=== PATIENT | female | born 2005 | race Caucasian/White ===

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

== ENCOUNTER 2025-02-20 19:51 | Emergency (ER) | payer OTHER, SELFPAY ==
--- OUTSIDE RECORDS SUMMARY | 2025-02-20 19:54 | XMS_ITS | Encounter Summary ---
Author Organization [facility] Address [address] [place] [address] Care Team Providers Care Edger Machine Helper Name Role Phone Felipa Wesley SLITTER CREASER SLOTTER OPERATOR Unavailable [phone] Felipa Wesley APRN Primary Care Provider [phone] Encounter Details Date Type Department Care Team (Late st Contact Info) Description 10/07/2024 [employer] Message Enc [facility] Medical Group Family & Internal Medicine [facility] [address] [place] [address] Felipa Wesley APRN [address] [address] heart monitor Social History Tobacco Use Types Packs/Day Years Used Date Smoking Tobacco: Never Smokeless Tobacco: Never Alcohol Use Standard Drinks/Week Comments No 0 (1 standard drink = 0.6 oz pur e alcohol) AUDIT-C Answer Date Recorded Frequency of Alcohol Consumption Never 07/04/2018 Average Number of Drinks Not on file 019 Frequency of Binge Drinking Not on file 06/22 PHQ-2 Answer Date Recorded Patient Health Questionnaire-2 Score 0 07/29/2024 Comments No Sex and Gender Information Value Date Recorded Sex Assigned at Female 07/04/2018 2:35 PM GEODETIC SURVEYOR Legal Sex Female 7:55 PM CDT Gender Identity Female 07/04/2018 2:35 PM GEODETIC SURVEYOR Sexual Orientation Straight 07/04/2018 2: 14 PM GEODETIC SURVEYOR Occupation Industry Job Start Date Job End Date student Not on file Not on file Not on file documented as of this encounter Plan of Treatment Upcoming Encounters Date Type Department Care Team (Late st Contact Info) Description 04/04/2025 10:00 AM GEODETIC SURVEYOR Office Visit [facility] Internal [facility] - [place] [address] [place] [phone] Felipa Wesley APRN [address] [facility] [address] [place] [address] 08/11/2025 8:00 AM CDT Office Visit [facility] [place] [address] [place] [address] Misbah Larson 3 [facility] [address] [place] [address] documented as of this encounter Visit Diagnoses Not on filedocumented in this encounter Additional Health Concerns Assessment Noted Time PHQ-9 Depression Total Score: 1 07/30/19 2:44 PM CDT documented as of this encounter Care Teams Edger Machine Helper Relationship Specialty Start Date End Date Felipa Wesley APRN [address] [facility] [address] [place] [address] PCP - General NURSE PRACTITIONER 10/04/24 Felipa Wesley APRN [address] [facility] [address] [place] [address] Advanced Practice Provider NURSE PRACTITIONER 04/25/24 documented as of this encounter
--- OUTSIDE RECORDS SUMMARY | 2025-02-20 19:54 | XMS_ITS | Encounter Summary ---
Author Organization [facility] Address [address] [place] [address] Care Team Providers Care Contact Center Consultant Name Role Phone Bianca Sullivan [facility] Primary Care Provider + Rupa Orr [facility] Primary Care Provider + Felipa Wesley APRN Unavailable [phone] Felipa Wesley APRN Primary Care Provider [phone] Encounter Details Date Type Department Care Team (Late st Contact Info) Description 05/26/2022 Laser [employer]t Message Enc [facility] Medical Group Family & Internal Medicine [address] [address] Bianca Sullivan [facility] [address] [place] [address] Pediatric Endocrine referral Social History Tobacco Use Types Packs/Day Years [...] Date Recorded Patient Health Questionnaire-2 Score 0 05/05/2022 Comments No Sex and Gender Information Value Date Recorded Sex Assigned at Female 07/04/2018 2:35 PM BILINGUAL ELEMENTARY SCHOOL TEACHER Legal Sex Female 7:55 PM CDT Gender Identity Female 07/04/2018 2:35 PM BILINGUAL ELEMENTARY SCHOOL TEACHER Sexual Orientation Straight 07/04/2018 2: 14 PM BILINGUAL ELEMENTARY SCHOOL TEACHER Occupation Industry Job Start Date Job End Date student Not on file Not on file Not on file COVID-19 Exposure Response Date Recorded In the last 10 days, have yo u been in contact with someone who was confirmed or suspected to have Coronavirus/COVID-19? No / Unsure 05/05/2022 7:00 AM BILINGUAL ELEMENTARY SCHOOL TEACHER documented as of this encounter Plan of Treatment Upcoming Encounters Date Type Department Care Team (Late st Contact Info) Description 04/04/2025 10:00 AM BILINGUAL ELEMENTARY SCHOOL TEACHER Office Visit [facility] Medical [facility] Family & Internal Medicine - [place] [address] [place] [address] Felipa Wesley APRN [address] [facility] [address] [place] [address] 08/11/2025 8:00 AM CDT Office Visit [facility] [place] [address] [place] [address] Misbah Larson DO 3 [facility] [address] [place] [id number] documented as of this encounter Visit Diagnoses Not on filedocumented in this encounter Additional Health Concerns Infection Onset Date Last Indicated Resolved Time COVID-19 Rule Out 10/05/2022 10/05/2022 10/05/2022 11:38 AM CDT COVID-19 Rule Out 04/10/2024 04/10/2024 04/10/2024 4:06 PM BILINGUAL ELEMENTARY SCHOOL TEACHER Assessment Noted Time PHQ-9 Depression Total Score: 0 03/08/20 4:36 PM CDT documented as of this encounter Care Teams Contact Center Consultant Relationship Specialty Start Date End Date Bianca Sullivan FNP- PCP - General Nurse Practitioner Family 03/08/21 03/12/23 Rupa Orr, [facility]- PCP - General Nurse Practitioner Family 03/13/23 10/03/24 Felipa Wesley APRN [address] [facility] [address] [place] [address] PCP - General NURSE PRACTITIONER 10/04/24 Felipa Wesley APRN [address] [facility] [address] [place] [address] Advanced Practice Provider NURSE PRACTITIONER 04/25/24 documented as of this encounter
--- OUTSIDE RECORDS SUMMARY | 2025-02-20 19:54 | XMS_ITS | Encounter Summary ---
Author Organization [facility] Address [address] [place] [address] Care Team Providers Care Maple Syrup Maker Name Role Phone Bianca Sullivan [facility] Primary Care Provider + Rupa Orr [facility] Primary Care Provider + Felipa Wesley APRN Unavailable Felipa Wesley APRN Primary Care Provider [phone] Encounter Details Date Type Department Care Team (Late st Contact Info) Description 01/02/2023 [employer] Message Enc [facility] Medical Group Family & Internal Medicine [address] [address] Bianca Sullivan [facility] [address] [place] [id number] Xray results Social History Tobacco Use Types Packs/Day Years [...] Date Recorded Patient Health Questionnaire-2 Score 0 11/21/2022 Comments No Sex and Gender Information Value Date Recorded Sex Assigned at Female 07/04/2018 2:35 PM TRAVEL ADMINISTRATOR Legal Sex Female 7:55 PM CDT Gender Identity Female 07/04/2018 2:35 PM TRAVEL ADMINISTRATOR Sexual Orientation Straight 07/04/2018 2: 14 PM TRAVEL ADMINISTRATOR Occupation Industry Job Start Date Job End Date student Not on file Not on file Not on file documented as of this encounter Progress Notes * Jaleesa Solo MA - 01/02/2023 11:14 AM CDT See result note. documented in this encounter Plan of Treatment Upcoming Encounters Date Type Department Care Team (Late st Contact Info) Description 04/04/2025 10:00 AM TRAVEL ADMINISTRATOR Office Visit [facility] Medical [facility] Family & Internal Medicine - [place] [address] [place] [address] Felipa Wesley APRN [address] [facility] [address] [place] [id number] 08/11/2025 8:00 AM CDT Office Visit [facility]ty [facility] - [place] [address] [place] [address] Misbah Larson DO 3 [facility] [address] [place] [address] documented as of this encounter Visit Diagnoses Not on filedocumented in this encounter Additional Health Concerns Infection Onset Date Last Indicated Resolved Time COVID-19 Rule Out 04/10/2024 04/10/2024 04/10/2024 4:06 PM TRAVEL ADMINISTRATOR Assessment Noted Time PHQ-9 Depression Total Score: 0 03/08/20 4:36 PM CDT documented as of this encounter Care Teams Maple Syrup Maker Relationship Specialty Start Date End Date Bianca Sullivan FNP-LARISSA PCP - General Nurse Practitioner Family 03/08/21 03/12/23 Rupa Orr, [facility]- PCP - General Nurse Practitioner Family 03/13/23 10/03/24 Felipa Wesley APRN [address] [facility] [address] [place] [address] PCP - General NURSE PRACTITIONER 10/04/24 Felipa Wesley APRN [address] [facility] [place] [address] Advanced Practice Provider NURSE PRACTITIONER 04/25/24 documented as of this encounter
--- OUTSIDE RECORDS SUMMARY | 2025-02-20 19:54 | XMS_ITS | Encounter Summary ---
Author Organization [facility] Address [address] [place] [address] Care Team Providers Care Operator Cavity Pump Name Role Phone ReedersAdalgisa FLATBED TRUCK DRIVER Primary Care Provider Unav ailable Bianca Sullivan [facility] Primary Care Provider + Rupa Orr [facility] Primary Care Provider + Felipa Wesley SLICE PLUG CUTTER OPERATOR Unavailable [phone] Felipa Wesley SLICE PLUG CUTTER OPERATOR Primary Care Provider [phone] Encounter Details Date Type Department Care Team (Late st Contact Info) Description 12/21/2017 Abstract [facility] CONVERSION [address] [place] [address] , Generic ConversionMD Social History Tobacco Use Types Packs/Day Years Used Date Smoking Tobacco: Never Assessed Comments Unknown Sex and Gender Information Value Date Recorded Sex Assigned at Female 07/04/2018 2:35 PM JUNIOR ACCOUNTANT Legal Sex Female 7:55 PM CDT Gender Identity Female 07/04/2018 2:35 PM JUNIOR ACCOUNTANT Sexual Orientation Straight 07/04/2018 2: 14 PM JUNIOR ACCOUNTANT documented as of this encounter Plan of Treatment Upcoming Encounters Date Type Department Care Team (Late Contact Info) Description 04/04/2025 10:00 AM JUNIOR ACCOUNTANT Office Visit [facility] Medical Group Family & Internal Medicine [facility] [address] [place] [address] Felipa Wesley, SLICE PLUG CUTTER OPERATOR [address] [facility] [address] [place] [address] 08/11/2025 8:00 AM CDT Office Visit [facility] Medical Group Pul[facility]ology Specialty [facility] - [place] [address] [place] [address] Misbah Larson DO 3 [facility] [address] [place] [address] documented as of this encounter Visit Diagnoses Not on filedocumented in this encounter Additional Health Concerns Infection Onset Date Last Indicated Resolved Time COVID-19 Rule Out 10/05/2022 10/05/2022 10/05/2022 11:38 AM CDT COVID-19 Rule Out 04/10/2024 04/10/2024 04/10/2024 4:06 PM JUNIOR ACCOUNTANT documented as of this encounter Care Teams Operator Cavity Pump Relationship Specialty Start Date End Date Adalgisa Lopez, FLATBED TRUCK DRIVER PCP - General NURSE PRACTITIONER 07/04/18 03/07/21 Bianca Sullivan, [facility] PCP - General Nurse Practitioner Family 03/08/21 03/12/23 Rupa Orr, [facility] PCP - General Nurse Practitioner Family 03/13/23 10/03/24 Felipa Wesley APRN [address] [facility] [address] [place] [address] PCP - General NURSE PRACTITIONER 10/04/24 Felipa Wesley APRN [address] [facility] [address] [place] [address] Advanced Practice Provider NURSE PRACTITIONER 04/25/24 documented as of this encounter
--- OUTSIDE RECORDS SUMMARY | 2025-02-20 19:54 | XMS_ITS | Encounter Summary ---
Author Organization [facility] Address [address] [place] [address] Care Team Providers Care Machine Assembler For Puller Over Name Role Phone Rupa Orr [facility] Primary Care Provider + Felipa Wesley APRN Unavailable [phone] Felipa Wesley APRN Primary Care Provider [phone] Encounter Details Date Type Department Care Team (Late st Contact Info) Description 04/12/2024 [employer] 263t Message Enc [facility] Medical Group Family & Internal Medicine [address] [address] Rupa Orr, [place] [address] Social History Tobacco Use Types Packs/Day Years [...] Date Recorded Patient Health Questionnaire-2 Score 0 04/09/2024 Comments No Sex and Gender Information Value Date Recorded Sex Assigned at Female 07/04/2018 2:35 PM STUDENT Legal Sex Female 7:55 PM CDT Gender Identity Female 07/04/2018 2:35 PM STUDENT Sexual Orientation Straight 07/04/2018 2: 14 PM STUDENT Occupation Industry Job Start Date Job End Date student Not on file Not on file Not on file documented as of this encounter Plan of Treatment Upcoming Encounters Date Type Department Care Team (Late st Contact Info) Description 04/04/2025 10:00 AM STUDENT Office Visit [facility] Family & Internal Medicine - [place] [address] [place] [address] Felipa Wesley APRN [address] [facility] [address] [place] [address] 08/11/2025 8:00 AM CDT Office Visit [facility] - [place] [address] [place] [address] Misbah Larson 3 [facility] [address] [place] [address] documented as of this encounter Visit Diagnoses Not on filedocumented in this encounter Additional Health Concerns Assessment Noted Time PHQ-9 Depression Total Score: 0 03/08/20 21 4:36 PM CDT documented as of this encounter Care Teams Machine Assembler For Puller Over Relationship Specialty Start Date End Date Rupa Orr, [employer]- PCP - General Nurse Practitioner Family 03/13/23 10/03/24 Felipa Wesley APRN [address] [facility] [address] [place] [address] PCP - General NURSE PRACTITIONER 10/04/24 Felipa Wesley [facility]N [address] [facility] [address] [address] [place] [id number] Advanced Practice Provider NURSE PRACTITIONER 04/25/24 documented as of this encounter
--- OUTSIDE RECORDS SUMMARY | 2025-02-20 19:54 | XMS_ITS | Clinical Summary ---
Author Organization [address] Address [facility] [place] [address] Care Team Providers Care Linux Network Administrator Name Role Phone No, Physician Primary Care Provider [phone] Allergies Active Allergy Reactions Criticality Noted Date Comments Amoxicillin-Pot Clavulanate Hives,Rash Medium 07/04/19 19 Medications tretinoin (RETIN-A) 0.025 % creamIndications:A cne vulgaris Apply a peasize to face nightly. Has used BP 45 g 2 06/28/19 22 Active clindamycin (CLEOCIN T) 1 % lotionIndications: Acne vulgaris Apply to affected areas on face, chest and back every morning 60 mL 2 09/21/19 22 Active mometasone (ELOCON) 0.1 % ointmentIndication s:Keloid Apply to affected areas on back up to once a day 45 g 1 10/19/19 23 Active Additional Information Patient not taking.Reported on 07/26/2024 medroxyPROGESTERon e (PROVERA) 10 mg tabletIndications: Amenorrhea, primary Take 1 tablet (10 mg total) by mouth daily 30 tablet 3 11/16/19 23 Active Additional Information Patient not taking.Reported on 07/26/2024 meloxicam (MOBIC) 15 mg tablet TAKE 1 TABLET BY MOUTH EVERY DAY WITH FOOD 30 tablet 04/16/20 24 Active Additional Information Patient not taking.Reported on 07/26/2024 Airsupra 90-80 mcg/actuation HFA aerosol inhaler Inhale 2 Inhalations every 4 (four) hours as needed 04/10/20 Active ondansetron ODT (ZOFRAN-ODT) 4 mg disintegrating tablet Take by mouth every 8 (eight) hours as needed Active Zepbound 7.5 mg/0.5 mL pen injector INJECT 7.5 MG INTO THE SKIN ONCE A WEEK. 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 07/11/2023 Amenorrhea, primary 06/21/2022 Acne vulgaris 04/12/2021 Keloid 04/12/2021 Overweight child 03/17/2020 Dysfunction of both eustachian tubes 03/17/2020 Encounters Date Type Department Care Team Description 02/14/2025 Results Follow-Up [facility] Medicine and [facility] Orthopedic [place] ([facility]) - [facility] [address] [place] [address] Andrea Ruvalcaba MD XR Pelvis 1 or 2 Views 02/13/2025 12:55 PM CDT - 02/13/2025 11:59 PM CDT Hospital Encounter [facility] Diagnostic Imaging [address] [place] [id number] Chronic right SI joint pain; Right hip pain Discharge Disposition: Discharge to home or self care 02/05/2025 Orders Only [facility] Medicine Orthopaedic Surgery [address] [facility] [address] [place] [address] Andrea Ruvalcaba MD Chronic right SI joint pain (Primary Dx); Right hip pain from Last 3 Months Surgical History Surgery Date Site/Laterality Comments TONSILLECTOMY MYRINGOTOMY W/ TUBES FLUORO GUIDED INJECTION HIP RIGHT 04/02/2024 Right Medical History Medical History Date Comments Low back pain Overweight child 03/17/2020 Keloid 04/12/2021 Dysfunction of both eustachian tubes 03/17/2020 Amenorrhea, primary 06/21/2022 Acne vulgaris 04/12/2021 Family History Medical History Relation Name Comments Late Puberty Brother puberty at 15 No Known Problems Father Arthritis Maternal Grandfather Dementia Maternal Grandfather Diabetes Maternal Grandfather Hypertension Maternal Grandfather Arthritis Maternal Grandmother Diabetes Maternal Grandmother Hypertension Maternal Grandmother Diabetes Mother Late Puberty Mother menarche at age 16 Diabetes Paternal Grandfather Breast cancer Paternal Grandmother Diabetes Paternal Grandmother Late Puberty Sister 1 menarche at 15, has a baby now Late Puberty Sister 2 menarche at 14 Relation Name Status Comments Brother Alive Father Alive Maternal Grandfather Alive Maternal Grandmother Alive Mother Alive Paternal Grandfather Alive Paternal Grandmother Alive Sister 1 Alive Sister 2 Alive Social History Tobacco Use Types Packs/Day Years Used Date Smoking Tobacco: Never Passive Smoke Exposure: Current Smokeless Tobacco: Never Tobacco Cessation:Counseling Given: Not Answered AUDIT-C Answer Date Recorded Frequency of Alcohol Consumption Not on file 04/19/2023 Q2: How many drinks containi ng alcohol do you have on a typical day when you are drinking? Patient does not drink Frequency of Binge Drinking Not on file 03/23 PHQ-2 Answer Date Recorded PHQ-2 Total Score (If total score is 3 or more points, staff should administer the PHQ-9) 0 06/21/2022 Comments No Sex and Gender Information Value Date Recorded Sex Assigned at Not on file Legal Sex Female 10:54 AM HOROLOGIST Gender Identity Not on file Sexual Orientation Not on file History Length Weight Head Circum Date/Time Gestation Age D/C Weight APGARs Delivery Method Feeding 2005 39 wks C-Sectio n They don't recall the weight, but the , delivery, and course was uncomplicated. Born at [place], [place]. Obstetrics History Para Term AB IAB SAB Ectopic Multiple Livin g Live Births 0 0 0 0 0 0 0 0 0 0 0 Growth Chart Information Age Height Weight Peadsk-ued-hkat th Percentile BMI Percentile Head Circum Head Circum Percentile Date 19 years 174.7 cm (5' 8.78) 151.9 kg (334 lb 14.1 oz) 99.93%* 2024 18 years 171 cm (5' 7.32) 156 kg (344 lb) 99.99%* 2023 18 years 173.8 cm (5' 8.43) 154.5 kg (340 lb 9.8 oz) 99.98%* 2023 18 years 175.5 cm (5' 9.09) 155.8 kg (343 lb 7.6 oz) 99.97%* 2023 17 years 174 cm (5' 8.5) 145.2 kg (320 lb) 99.93%* 2022 17 years 173.5 cm (5' 8.31) 149.7 kg (330 lb 0.5 oz) 99.97%* 2022 17 years 148.3 kg (327 lb) 2022 17 years 169.5 cm (5' 6.73) 150.2 kg (331 lb 3.2 oz) 99.99%* 2022 17 years 173.5 cm (5' 8.3) 150.6 kg (332 lb) 99.98%* 2022 17 years 172.8 cm (5' 8.03) 149.7 kg (330 lb 0.5 oz) 99.99%* 2022 16 years 172.7 cm (5' 8) 139.5 kg (307 lb 8.7 oz) 99.95%* 2021 16 years 172.1 cm (5' 7.76) 144.1 kg (317 lb 10.9 oz) 99.98%* 2021 16 years 173.5 cm (5' 8.31) 142.7 kg (314 lb 9.5 oz) 99.98%* 2021 15 years 139.7 kg (308 lb) 2020 14 years 170.2 cm (5' 7) 123.8 kg (273 lb) 99.96%* 2019 13 years 170.2 cm (5' 7) 123.8 kg (273 lb) 99.97%* 2018 * CDC (Girls, 2-20 Years) Last Filed Vital Signs Vital Sign Reading Time Taken Comments Blood Pressure 125/72 04/19/2023 3:17 PM HOROLOGIST Pulse 75 04/19/2023 3:17 PM HOROLOGIST Temperature 36.4 C (97.5 F) 04/19/2023 2:21 PM HOROLOGIST Respiratory Rate 20 04/19/2023 3:17 PM HOROLOGIST Oxygen Saturation 100% 04/19/2023 3:17 PM HOROLOGIST Inhaled Oxygen Concentration - - Weight 151.9 kg (334 lb 14.1 oz) 07/26/2024 2:58 PM HOROLOGIST Height 174.7 cm (5' 8.78) 07/26/2024 2:58 PM CS T Body Mass Index 49.77 07/26/2024 2:58 PM HOROLOGIST Plan of Treatment Health Maintenance Due Date Last Done Comments Hepatitis C Screening 2005 Meningococcal B Vaccine (1 o f 2 - Standard) 2021 Regular Well Visit/Exam 18-64 2023 Depression Screening 06/20/2023 06/20/2022 Influenza Vaccine (#1) 2025 , 03/08/2021, 03/12/2020, Additional history exists DTaP/Tdap/Td Vaccine (7 - Td or Tdap) 11/14/2026 11/14/2016, 02/27/2010, 02/27/2010, Additional history exists Pneumococcal vaccine <65 (2 of 2 - PCV20 or PCV21) 2055 02/27/2010, 05/06/2006, 02/14/2006, Additional history exists Hepatitis B Screening Completed 02/14/2006 , 2005, 2005, Additional history exists Varicella Vaccines Completed 02/27/2010, 1 , 05/06/2006, Additional history exists HPV Vaccines Completed 01/15/2020, 01/04/2019 Meningococcal Vaccine Completed 01/27/2023, 017 Goals Goal Patient Goal Type Associated Problems Recent Progress Patient-Stated? Author CCM Chronic Pain Care Plan Chronic Care Management No change(04/19 2:23 PM HOROLOGIST) No Harper Link, RN Note: Problem: Chronic Pain Goals: 1. Minimize further functional decline 2. Maximize quality of life 3. Control pain Strategies: - Activity/exercise program recommendation - Conservative stepwise pain medicine strategy with multi-disciplinary approach - Recommend healthy lifestyle strategies and compensatory methods as needed Procedures Procedure Name Priority Date/Time Associated Diagnosis Comments XR PELVIS 1 OR 2 VIEWS Schedule Routine, Read Routine (OP Routine) 02/13/2025 1:10 PM CDT Chronic right SI joint pain Right hip pain XR SPINE LUMBAR COMPLETE 4 OR MORE VIEWS Schedule Routine, Read Routine (OP Routine) 02/13/2025 1:10 PM CDT Chronic right SI joint pain Right hip pain from Last 3 Months Results * XR Pelvis 1 or 2 Views (02/13/2025 1:10 PM CDT) Anatomical Region Laterality Modality Body, Pelvis N/A Computed Radiogr aphy 02/14/2025 8:21 AM CDT Narrative 02/14/2025 8:33 AM CDT EXAM DESCRIPTION: 1. XR SPINE LUMBAR 4 OR MORE VIEWS 2. XR PELVIS 1 OR 2 VIEWS REASON FOR STUDY: low back pain right hip pain Lower back radiating into right SI joints and right hip for over 2 years; hx lumbar/right hip pain injections; no injury reported; FINDINGS: Four views lumbar spine and single-view pelvis submitted with comparison 02/16/2024. Lumbar spine: No acute fracture. Alignment is normal. The intervertebral disc space heights are normal. Flexion-extension views demonstrate no abnormal translation. Pelvis: No acute fracture. Mild left inferior pelvic tilt. The femoral heads are well seated. The hip joint space heights are normal. IMPRESSION: 1. Normal lumbar spine evaluation. 2. Mild left inferior pelvic tilt. May consider further evaluation with leg length discrepancy imaging. THIS IS AN ELECTRONICALLY VERIFIED FINAL REPORT 02/14/2025 8:33 AM - Electronically signed by Danny Garcia M.D. MF: NEDA Report ID: [id number] Reading Location: [id number] Procedure Note Danny Garcia MD - 02/14/2025 EXAM DESCRIPTION: 1. XR SPINE LUMBAR 4 OR MORE VIEWS 2. XR PELVIS 1 OR 2 VIEWS REASON FOR STUDY: low back pain right hip pain Lower back radiating into right SI joints and right hip for over 2 years;hx lumbar/right hip pain injections; no injury reported; FINDINGS: Four views lumbar spine and single-view pelvis submitted with comparison 02/16/2024. Lumbar spine: No acute fracture. Alignment is normal. The intervertebral disc space heights are normal. Flexion-extension views demonstrate no abnormal translation. Pelvis: No acute fracture. Mild left inferior pelvic tilt. The femoral heads are well seated. The hip joint space heights are normal. IMPRESSION: 1. Normal lumbar spine evaluation. 2. Mild left inferior pelvic tilt. May consider further evaluation withleg length discrepancy imaging. THIS IS AN ELECTRONICALLY VERIFIED FINAL REPORT 02/14/2025 8:33 AM - Electronically signed by Danny Garcia M.D. MF: NEDA Report ID: [id number] Reading Location: [place] [id number] [place] Andrea Ruvalcaba MD IMG XR PROCEDURES Final Res ult * X-ray lumbar spine complete 4+ views (02/13/2025 1:10 PM CDT) Anatomical Region Laterality Modality Spine N/A Computed Radiogr aphy 02/14/2025 8:21 AM CDT Narrative 02/14/2025 8:33 AM CDT EXAM DESCRIPTION: 1. XR SPINE LUMBAR 4 OR MORE VIEWS 2. XR PELVIS 1 OR 2 VIEWS REASON FOR STUDY: low back pain right hip pain Lower back radiating into right SI joints and right hip for over 2 years; hx lumbar/right hip pain injections; no injury reported; FINDINGS: Four views lumbar spine and single-view pelvis submitted with comparison 02/16/2024. Lumbar spine: No acute fracture. Alignment is normal. The intervertebral disc space heights are normal. Flexion-extension views demonstrate no abnormal translation. Pelvis: No acute fracture. Mild left inferior pelvic tilt. The femoral heads are well seated. The hip joint space heights are normal. IMPRESSION: 1. Normal lumbar spine evaluation. 2. Mild left inferior pelvic tilt. May consider further evaluation with leg length discrepancy imaging. THIS IS AN ELECTRONICALLY VERIFIED FINAL REPORT 02/14/2025 8:33 AM - Electronically signed by Danny Garcia M.D. MF: NEDA Report ID: [id number] Reading Location: [id number] Procedure Note Danny Garcia MD - 02/14/2025 EXAM DESCRIPTION: 1. XR SPINE LUMBAR 4 OR MORE VIEWS 2. XR PELVIS 1 OR 2 VIEWS REASON FOR STUDY: low back pain right hip pain Lower back radiating into right SI joints and right hip for over 2 years;hx lumbar/right hip pain injections; no injury reported; FINDINGS: Four views lumbar spine and single-view pelvis submitted with comparison 02/16/2024. Lumbar spine: No acute fracture. Alignment is normal. The intervertebral disc space heights are normal. Flexion-extension views demonstrate no abnormal translation. Pelvis: No acute fracture. Mild left inferior pelvic tilt. The femoral heads are well seated. The hip joint space heights are normal. IMPRESSION: 1. Normal lumbar spine evaluation. 2. Mild left inferior pelvic tilt. May consider further evaluation withleg length discrepancy imaging. THIS IS AN ELECTRONICALLY VERIFIED FINAL REPORT 02/14/2025 8:33 AM - Electronically signed by Danny Garcia M.D. MF: NEDA Report ID: [id number] Reading Location: [id number] us Andrea Ruvalcaba MD IMG XR PROCEDURES Final Res ult from Last 3 Months Insurance [facility] [employer] [facility] [employer] [facility] H[employer]PPO Address: [facility] [address] [place] [id number] [facility] [employer] H[employer]/PPO Address: [address] [phone] [facility] [employer] H[employer]/PPO Address: [id number] [employer] [facility] H[employer]/PPO Address: [address] [address] [place] [address] [employer] [facility] [employer] H[employer]/PPO Address: [address] [address] [place] [address] Care Teams Linux Network Administrator Relationship Specialty Start Date End Date No, Physician PCP - General 07/26/24
--- OUTSIDE RECORDS SUMMARY | 2025-02-20 19:54 | XMS_ITS | Clinical Summary ---
Author Organization [facility] Address [address] [place] [address] Care Team Providers Care Transportation Inspector Name Role Phone Maryjane Felipa Kelsey APRN Unavailable [phone] Felipa Wesley APRN Primary Care Provider [phone] Allergies Active Allergy Reactions Criticality Noted Date Comments Amoxicillin-Pot Clavulanate Hives,Rash Low 07/04/19 19 Medications clindamycin 1 % lotion Apply to affected areas on face, chest and back every morning 2 Active tretinoin 0.025 % cream Apply a peasize to face nightly. Has used BP 2 Active meloxicam (MOBIC) 15 MG tablet Take 1 tablet (15 mg total) by mouth daily. 4 Active ondansetron (ZOFRAN-ODT) 4 MG disintegrating tablet Take 1 tablet (4 mg total) by mouth every 8 (eight) hours as needed for Nausea. 20 tablet 4 Active tirzepatide (ZEPBOUND) 15 MG/0.5ML injectionIndication s:Weight Loss Inject 15 mg into the skin once a week. Indications: Weight Loss 6 mL 3 5 Active metoprolol succinate ER (TOPROL-XL) 50 MG 24 hr tabletIndications:P alpitations,Primary hypertension,Tachyc ardia Take 1 tablet (50 mg total) by mouth daily. 90 tablet 1 5 Active montelukast (SINGULAIR) 10 MG tabletIndications:M oderate persistent asthma without complication (HHS/HCC) Take 1 tablet (10 mg total) by mouth nightly at bedtime. 90 tablet 1 5 Active Fluticasone-Umeclid in-Vilant (TRELEGY ELLIPTA) 200-62.5-25 MCG/ACT AEROSOL POWDER, BREATH ACTIVATEDIndication s:Moderate persistent asthma without complication (HHS/HCC) Inhale 1 puff into the lungs daily. 60 each 6 5 Active Albuterol-Budesonid e (AIRSUPRA) 90-80 MCG/ACT AerosolIndications: Moderate persistent asthma without complication (HHS/HCC) Inhale 2 puffs into the lungs every 4 (four) hours as needed. 10.7 g 6 5 Active Active Problems Problem Noted Date Diagnosed Date Shortness of breath 12/20/2024 Assessment & Plan (12/20/2024 10:11 AM CDT): I reassured her that her cardiac testing is within normal limits. She also had pulmonary function testing that was within normal limits. I am not sure on the etiology of her shortness of breath, but would not pursue any other cardiac etiologies. Palpitations 12/20/2024 Assessment & Plan (12/20/2024 10:12 AM CDT): Her monitor does not show any significant arrhythmias. Can continue metoprolol for symptom control. Tendinopathy of right gluteus medius 02/16/2024 Chronic right SI joint pain 07/11/2023 Amenorrhea, primary 06/21/2022 Morbid obesity with BMI of 45.0-49.9, adult 05/0 10/2021 Assessment & Plan (12/20/2024 10:11 AM CDT): Continue Zepbound. Encourage lifestyle modifications. She is morbidly obese with a Body mass index is 48.66 kg/m . She was educated on lifestyle modifications including diet and exercise. Acne vulgaris 04/12/2021 Keloid 04/12/2021 Overweight child 03/17/2020 Dysfunction of both eustachian tubes 03/17/2020 Encounters Date Type Department Care Team Description 02/03/2025 2:40 PM CDT Office Visit [facility] Pulmonology [facility] [address] [place] [address] Misbah Larson DO Shortness Of Breath (On exertion; ) 02/03/2025 Travel 12/29/2024 Results Follow-Up [facility] Family & Internal [address] [address] Felipa Wesley APRN Home Sleep Study - WatchPat ([id number]/G0400) 12/20/2024 9:30 AM CDT Office Visit [facility] [address] [address] Cody Kwan MD Consult; Shortness Of Breath ; Palpitations 12/20/2024 MyChart Message Enc [facility] Internal [address] [address] Felipa Wesley APRN Cardio Appt 12/20/2024 Travel 12/16/2024 6:30 PM CDT - 12/16/2024 11:59 PM CDT Hospital Encounter [facility] [address] [place] [phone] Felipa Wesley APRN Snoring Discharge Disposition: Home or Self Care (Routine Discharge) 12/16/2024 Travel 12/06/2024 4:20 PM CDT Office Visit [facility] Family & Internal [address] [address] Felipa Wesley APRN Weight Loss (8 wk f/u); Results (F/u on heart monitor results) 12/06/2024 Travel 11/26/2024 MyChart Message Enc [facility] & Internal [address] [address] Felipa Wesley APRN weight loss shots 11/24/2024 Results Follow-Up [facility] Family & Internal Medicine [facility] [address] [place] [address] Felipa Wesley APRN EVENT RECORDER (ECG) UP TO 30 DAYS COMPLETE from Last 3 Months Immunizations Immunization Administration Dates Next Due DTaP (Daptacel) 02/27/2010 DTaP-IPV/Hib (Pentacel) 2005,2005, DTaP/Hib (TriHIbit) 08/02/2006 Dtap 08/02/2006 Dtap (Generic) 02/27/2010 Dtap/Hib 08/02/2006 Fluzone 6 Months+ Quad (0.5 mL Prefilled Syringe) 04/13/2022,03/08/2021,03/12/2020,02/20 HPV GARDASIL 9-VALENT 01/15/2020,01/04/2019 Hepatitis A (Generic) 05/29/2007,11/23/2006 Hepatitis B (Generic: Adult) 02/14/2006, 2005,2005,04/21 Hepatitis B Pediatric 2005 Hib (Generic) 2005,2005,2005 Influenza (Generic) 03/21/2014,03/21/2013,2011 Influenza Adult (Generic) 02/28/2018,07/2016,03/16/2016,02/19 MENINGOCOCCAL A C Y&W-135 oligosaccharide (MENVEO) 01/27/2023 MMR 02/27/2010,05/06/2006 MMR (Generic) 02/27/2010,05/06/2006 Menactra 11/14/2016 Pediarix 2005,2005,2005 Pneumococcal (Pneumovax 23) 02/27/2010,0 02/14/2006,2005,08/21,2005 Pneumococcal (Prevnar 7) 05/06/2006,10/20,2005,06/23 Polio Ipv (Generic) 02/27/2010 Tdap (Generic) 11/14/2016 Varicella Vaccine 02/27/2010,05/06/2006 Family History Medical History Relation Comments Heart Attack Father Stroke Father Diabetes Maternal Grandparent Parkinson's Disease Maternal Grandparent stage 2 None Mother Heart Attack Paternal Grandfather Cancer Paternal Grandmother breast canc er Relation Status Comments Father Alive Maternal Grandparent Mother Alive Paternal Grandfather Alive Paternal Grandmother Social History Tobacco Use Types Packs/Day Years Used Date Smoking Tobacco: Never Smokeless Tobacco: Never Tobacco Cessation:Counseling Given: Yes Alcohol Use Standard Drinks/Week Comments No 0 [...] Sex Assigned at Female 07/04/2018 2:35 PM REFERENCE LIBRARY ASSISTANT Legal Sex Female 7:55 PM CDT Gender Identity Female 07/04/2018 2:35 PM REFERENCE LIBRARY ASSISTANT Sexual Orientation Straight 07/04/2018 2: 14 PM REFERENCE LIBRARY ASSISTANT Occupation Industry Job Start Date Job End Date student Not on file Not on file Not on file Last Filed Vital Signs Vital Sign Reading Time Taken Comments Blood Pressure 134/70 02/03/2025 2:49 PM CDT Pulse 68 02/03/2025 2:49 PM CDT Temperature 36.5 C (97.7 F) 12/06/2024 4:35 PM CDT Respiratory Rate 16 02/03/2025 2:49 PM CDT Oxygen Saturation 97% 02/03/2025 2:49 PM CDT Inhaled Oxygen Concentration - - Weight 145.6 kg (321 lb) 02/03/2025 2:49 PM CDT Height 172.7 cm (5' 8) 02/03/2025 2:49 PM CDT Body Mass Index 48.81 02/03/2025 2:49 PM CDT Plan of Treatment Upcoming Encounters Date Type Department Care Team (Late st Contact Info) Description 04/04/2025 10:00 AM REFERENCE LIBRARY ASSISTANT Office Visit [facility] Family & Internal Medicine [address] [phone] Maryjane Felipa Kelsey, SURVEYOR OIL WELL DIRECTIONAL [address] [place], [place] [phone] 08/11/2025 8:00 AM CDT Office Visit [facility] Pul[facility] [place] [address] [place] [address] Misbah Larson DO [address] [facility] [address] [place] [id number] Health Maintenance Due Date Last Done Comments Pneumococcal Vaccine: Pediatrics (0 to 5 Years) and At-Risk Patients (6 to 49 Years) (2 of 3 - PCV) 02/27/2011 02/27/2010, 05/06/2006, 02/14/2006, Additional history exists Meningococcal B Vaccine (1 of 2 - Standard) 2021 Annual Physical 12/31/2023 12/30/2022, 11/20, 01/04/2019 COVID-19 Vaccine ( - season) 2025 DTaP, Tdap and Td Vaccines (7 - Td or Tdap) 11/14/2026 11/14/2016, 02/27/2010, 02/27/2010, Additional history exists Hepatitis C 04/30/2054 Postponed from 2023 (Patient Refused) Hepatitis B Vaccines Completed 02/14/2006, 2005, 2005, Additional history exists HPV Vaccines Completed 01/15/2020, 01/04/2019 Meningococcal Vaccine Completed 01/27/2023, 017 PHQ-2 (Physician [place]) Completed 07/29/2024 RSV Immunizations Under 20 Months Aged Out No longer eligible based on patient's age to complete this topic Procedures Procedure Name Priority Date/Time Associated Diagnosis Comments HOME SLEEP STUDY - WATCHPAT Routine 12/16/2024 6:30 PM CDT Loud snoring EVENT RECORDER (ECG) UP TO 30 DAYS COMPLETE Routine 11/21/2024 10:20 AM CDT Shortness of breath Palpitations from Last 3 Months Results * Home Sleep Study - WatchPat ([id number]/G0400) (12/16/2024 6:30 PM CDT) Narrative [facility] - 12/16/2024 6:30 PM CDT Red Shearer MD 12/27/2024 10:01 AM Patient Information First Name: DILLON Last Name: DELLA ID: [id number] Date: 2005 Age: 19 Gender: Female BMI: 49.5 (W=326 lb, H=5' 8) Sleep Study Information Study Date:12/18/2024 Referring Physician Information First Name: Last Name: FELIPA WESLEY 5.4.84.4 / 4.2.1210 / 84 S/H/A Version: WATCHPAT HOME SLEEP APNEA TEST REPORT SUMMARY DATA SLEEP STUDY/ARCHITECTURE: This patient was studied using a WatchPAT home sleep study device, The evaluation was initiated on 12/18/2024 at 11:08:28 PM and was stopped at 7:37:50 AM. The total recording time was 8 hrs, 29 min with total sleep evaluation of 7 hrs, 13 min. ANALYSIS: (pAHI = PAT Apnea-Hypopnea Index, pRDI = PAT Respiratory Disturbance Index) Total pAHI 4%: 2.0 Total pRDI: 6.3 Average Sleep Oxygen Saturation: 95 Minimum Sleep Oxygen Saturation: 90 Mean Heart Rate During Sleep: 78 Afib Total Duration: Not detected Afib Longest Duration: Not detected (Afib events < 60 seconds may be artifact) Premature Beats per Minute: 0.8 Rev. Printed on:12/27/2024 12/18/2024,[id number],2005,Female *The automatic analysis events or stages have been edited. 539 Page 1 of 2 Sleep Study Report SUMMARY/DIAGNOSIS 1.) No Evidence of Obstructive Sleep Apnea. RECOMMENDATIONS This patient should maintain good sleep hygiene techniques, maintain a consistent sleep/wake schedule with adequate hours of sleep, and avoid hazardous activities when sleepy. The patient should be cautioned about factors that may potentially exacerbate snoring and other sleep-related issues, such as HEATER HELPER FORGE depressants, especially at bedtime. Raw data reviewed and electronically signed by: Red Shearer on 12/27/2024 9:59:26 AM at 2:59:31PM, [facility] us Felipa Wesley APRN SLEEP CENTER ORDERABLES Fi nal Result [facility] [address] [place] [address], * EVENT RECORDER (ECG) UP TO 30 DAYS COMPLETE (11/21/2024 10:20 AM CDT) Impressions [facility] - 11/21/2024 10:20 AM CDT [place], [place] [address] MOBILE CARDIAC PHOTOGRAPHY SALES ASSOCIATE REPORT Patient Name: Dillon Hull : 2005 Carbide Tool Maker Date: 10/17/2024 End Date: 11/15/2024 Performed At[facility] [place] Interpreting Assistant Food Service Manager: Danny Reese MD PCP: FELIPA WESLEY APRN Ordering Provider: FELIPA WESLEY APRN INDICATION: Shortness of breath DURATION OF MONITORIN days NUMBER OF TRANSMISSIONS: 11 (8 auto transmissions, 3 manual, 0 periodic) INTERPRETATION: A 30-day mobile cardiac personnel monitor analyzed. Interpretable data was 22 days, 22 hours and 41 minutes (79% of monitoring period). The baseline rhythm was sinus tachycardia. There was not atrial fibrillation or atrial flutter observed. A minimum heart rate was 53 bpm on at 5:20 AM. A maximum heart rate in sinus rhythm was 197 bpm on 10/19/2024 at 9:44 PM. There were 0 pauses observed. The manual triggered episodes for shortness of breath correlated with sinus rhythm. An episode of shortness of breath and feeling faint correlated with sinus tachycardia. The auto triggered episodes were for isolated premature ventricular complexes, ventricular couplets, sinus tachycardia, sinus bradycardia. PVC burden was less than 1%. CONCLUSION: 30-day mobile cardiac telemetry was only notable for symptom correlation with sinus rhythm or sinus tachycardia. Interpreting Assistant Food Service Manager: Dr. Danny Reese us Felipa Wesley SURVEYOR OIL WELL DIRECTIONAL CV VASCULAR ORDERABLES Fin al Result [facility] from Last 3 Months Insurance Member Subscriber Plan / Payer (Ef fective 2018-Present) Name:Dillon Hull Relation to Subscriber:Child Name:YOSELYN HULL Date of :1974 (Home) Address: [address] [place] [address] Payer ID:[id number] (NAIC) Type:Not on file Address: [place] [phone] Care Teams Transportation Inspector Relationship Specialty Start Date End Date Felipa Wesley APRN [address] [facility] [address] [place] [phone] PCP - General NURSE PRACTITIONER 10/04/24 Felipa Wesley APRN [id number] [facility] [address] [place] [id number] Advanced Practice Provider NURSE PRACTITIONER 04/25/24
--- OUTSIDE RECORDS SUMMARY | 2025-02-20 19:54 | XMS_ITS | Encounter Summary ---
Author Organization [facility] Address [address] [place] [address] Phone Care Team Providers Care Yarn Twister Name Role Phone No, Physician Primary Care Provider [phone] Encounter Details Date Type Department Care Team (Late st Contact Info) Description 02/14/2025 Results Follow-Up [facility] Medicine and [facility] - [facility] [address] [place] [address] Andrea Ruvalcaba MD [address] [facility] [address] [place], [place] [id number] XR Pelvis 1 or 2 Views Social History Tobacco Use Types Packs/Day Years Used Date Smoking Tobacco: Never Passive Smoke Exposure: Current Smokeless Tobacco: Never AUDIT-C Answer Date Recorded Frequency of Alcohol [...] on file Legal Sex Female 10:54 AM GARBAGE COLLECTOR SUPERVISOR Gender Identity Not on file Sexual Orientation Not on file documented as of this encounter Miscellaneous Notes * Result Encounter Note - Shabnam Young CMA - 02/18/2025 10:34 AM CDT The x-rays look very reassuring. We do not see any evidence of fracture the spine while being a bithyper lordotic does not show any abnormal motion or abnormal alignment. Last read by Rupa Houston at 4:28PM on 02/14/2025. XR Pelvis 1 or 2 Views documented in this encounter Plan of Treatment Not on file documented as of this encounter Goals Goal Patient Goal Type Associated Problems Recent Progress Patient-Stated? Author CCM Chronic Pain Care Plan Chronic Care Management No change(04/19 2:23 PM GARBAGE COLLECTOR SUPERVISOR) No Harper Link, [place] Note: Problem: Chronic Pain Goals: 1. Minimize further functional decline 2. Maximize quality of life 3. Control pain Strategies: - Activity/exercise program recommendation - Conservative stepwise pain medicine strategy with multi-disciplinary approach - Recommend healthy lifestyle strategies and compensatory methods as needed documented as of this encounter Visit Diagnoses Not on filedocumented in this encounter Care Teams Yarn Twister Relationship Specialty Start Date End Date No, Physician PCP - General 07/26/24 documented as of this encounter
[2025-02-20 19:58] VITALS: BP 111/97; PULSE 89; RESP 18; TEMP 36.5; O2SAT 100
--- NOTE | 2025-02-20 20:11 | ED.NAVMDI ---
HPI - Nausea/Vomiting/Diarrhea General Chief complaint: Upper Respiratory Infection Stated complaint: fever Time Seen by Provider: 02/20/25 20:02 Source: patient and RN notes reviewed Mode of arrival: ambulatory Limitations: no limitations History of Present Illness HPI Narrative: Patient presents today complaining of nausea, vomiting, diarrhea, sweats, chills, fever. Symptoms began last night except for fever which likely began today with a T-max of 103?. She vomited 4 times today, last was 5 hours prior to arrival. She had 5 episodes of diarrhea today that was watery. Denies blood or mucus in the stool. She has been able to keep down water since her last vomiting episode and is putting out urine. Denies abdominal pain or any URI symptoms. She has tried Tylenol and Zofran without much improvement. Patient works at a daycare. Related Data Home Medications ?Medication ?Instructions ?Recorded ?Confirmed ?Last Taken ?Type ondansetron 4 mg disintegrating mg 02/20/25 Unknown History tablet tirzepatide (weight loss) 15 mg subcut 02/20/25 Unknown History mg/0.5 mL subcutaneous pen injector (Zepbound) Allergies Allergy/AdvReac Type Severity Reaction Status Date / Time amoxicillin (From Augmentin) Allergy Mild Rash Verified 02/20/25 20:06 clavulanic acid (From Allergy Mild Rash Verified 02/20/25 20:06 Augmentin) PMFSH Past Medical History Medical History No active medical problems Social History Social History Substance use: never Comments At time of signature, I have reviewed and agree with nursing past medical, surgical, social and family history unless otherwise noted. Please see nursing chart for further information. There is no relevant family history pertinent to the presenting complaint Exam Narrative: GENERAL: Mildly ill-appearing, well-nourished, and in no acute distress. HEAD: Normocephalic, atraumatic. EYES: EOMI. No redness or drainage. Conjunctivae normal. ENT: Mucous membranes pink and moist. Nares clear. No rhinorrhea. TMs normal bilaterally. Throat normal. Uvula midline. NECK: Normal AROM. Supple. No lymphadenopathy. CHEST: No respiratory distress. Clear to auscultation. HEART: Regular rate and rhythm. No murmur appreciated. ABDOMEN: Soft, nondistended, normal active bowel sounds.+ generalized abdominal tenderness without rebound or guarding EXTREMITIES: Normal range of motion. No edema. SKIN: Warm, dry, no rash. Capillary refill normal. Normal skin turgor. NEURO: No focal deficits. Alert and oriented x3. Gait steady. PSYCH: Normal affect. No signs of depression or anxiety. Course Course Level of Care: Express Care Visit Vital Signs Vital signs: Vital Signs Temperature 97.7 F 02/20/25 19:58 Pulse Rate 89 02/20/25 19:58 Respiratory Rate 18 02/20/25 19:58 Blood Pressure 111/97 H 02/20/25 19:58 Pulse Oximetry 100 02/20/25 19:58 Oxygen Delivery Room Air 02/20/25 19:58 Temperature 97.7 F 02/20/25 19:58 Pulse Rate 89 02/20/25 19:58 Respiratory Rate 18 02/20/25 19:58 Blood Pressure 111/97 H 02/20/25 19:58 Pulse Oximetry 100 02/20/25 19:58 Oxygen Delivery Room Air 02/20/25 19:58 Reviewed MDM - Nausea/Vomiting/Diarrhea MDM Narrative Medical decision making narrative: 19 year old female patient presents today complaining of nausea, vomiting, diarrhea, sweats, chills, fever. Symptoms began last night except for fever which likely began today with a T-max of 103?. She vomited 4 times today, last was 5 hours prior to arrival. She had 5 episodes of diarrhea today that was watery. Denies blood or mucus in the stool. She has been able to keep down water since her last vomiting episode and is putting out urine. She tried Tylenol and Zofran at home without much improvement. Upon exam, patient is mildly ill appearing. She has generalized abdominal tenderness without rebound or guarding. Mucous membranes pink and moist with normal skin turgor. Influenza and COVID-19 swabs negative. Symptoms likely viral in etiology. Discussed [id number] medication use and duration of illness. Recommend adding fluids containing electrolytes. New prescription for Zofran sent to pharmacy. Anticipatory guidance given.VSS. Patient agrees with plan. Differential Diagnosis Differential diagnosis: Likely food poisoning, gastroenteritis, dehydration and other (COVID-19, influenza) Lab Data Attestation: I reviewed the patient's lab results. Lab results narrative: COVID-19 negative, influenza negative Critical Care Time Critical Care Time Critical Care Time: No Discharge Plan Discharge Clinical Impression: Viral infection Patient Disposition: Home Condition: Stable Instructions: Dehydration (DC), Acute Nausea and Vomiting (DC), Acute Diarrhea (ED) Additional Instructions: Your COVID-19 and influenza swabs are negative. Your symptoms are likely due to a viral illness. Take the Zofran as needed for your nausea and vomiting. Drink fluids, some containing electrolytes, to help stay hydrated. As discussed, wash hands frequently at home and at work, especially before eating, and after using the bathroom. Please go to the ER immediately if your feeling dehydrated, are vomiting and can stop, have blood or mucus in your stool. Patient Language: Hungarian Prescriptions: New ondansetron 4 mg tablet,disintegrating 4 mg PO Q4-6H PRN (Reason: nausea and vomiting) Qty: 20 0RF No Action ondansetron 4 mg tablet,disintegrating Zepbound 15 mg/0.5 mL pen injector SUBCUT Follow-up/Referrals: Maryjane,Felipa Delgado APRN [Primary Care Provider, Unknown] Stand Alone Forms: Work/School Release IP Time of Disposition: 20:22
[2025-02-20 20:23] LABS: EDCOVIDSCREEN Negative (Negative); EDINFLUASCREEN Negative (Negative); EDINFLUBSCREEN Negative (Negative)
== END 2025-02-20 20:25 | disposition home or self-care (01) ==
PROVIDERS: Emergency Provider Nurse Practitioner; PCP Registered Nurse
DX: B34.9 Viral infection, unspecified (principal); Z79.899 Other long term (current) drug therapy; Z20.822 Contact with and (suspected) exposure to COVID-19
CPT/HCPCS: 87426; 87804; 99213; G0463